=== PATIENT | male | born 2000 | race Caucasian/White ===

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

== ENCOUNTER 2025-01-09 01:54 | Inpatient (IN) | payer MEDICAID, OTHER ==
--- NOTE | 2025-01-09 02:25 | ED ---
Psych HPI - General Source: patient, police, RN notes reviewed Mode of arrival: ambulatory <Kamila Mckeon - Last Filed: 01/09/25 02:49> <Zaid Leonard - Last Filed: 01/09/25 03:50> - General Chief Complaint: Psychiatric Symptoms Stated Complaint: [place] Time Seen by Provider: 01/09/25 02:17 - History of Present Illness Initial Comments: 24-year-old male petitioned by police for mental health evaluation. Patient was found by his girlfriend with a belt around his neck that he attached to the refrigerator handle. Girlfriend then proceeded to call 911. Patient states he is not suicidal and is regretful of his actions. States he just has anxiety and believes he needs to be on a medication for his anxiety. States he has some redness around his neck however has no abrasions or lacerations, no difficulty breathing or swallowing. No other injuries. (Kamila Mckeon) - Related Data Home Medications Medication Instructions Recorded Confirmed No Known Home Medications 01/23/18 01/23/18 Allergies Allergy/AdvReac Type Severity Reaction Status Date / Time egg Allergy Nausea & Verified 01/09/25 02:00 Vomiting & Diarrhea Review of Systems ROS Other: All systems not noted in ROS Statement are negative. <Kamila Mckeon - Last Filed: 01/09/25 02:49> ROS Other: All systems not noted in ROS Statement are negative. <Zaid Leonard - Last Filed: 01/09/25 03:50> ROS Statement: Those systems with pertinent positive or pertinent negative responses have been documented in the HPI. Past Medical History Past Medical History: No Reported History History of Any Multi-Drug Resistant Organisms: None Reported Past Surgical History: No Surgical Hx Reported Past Psychological History: Depression Smoking Status: Current every day smoker, Vaper Past Alcohol Use History: None Reported Past Drug Use History: None Reported <Kamila Mckeon - Last Filed: 01/09/25 02:49> General Exam Limitations: no limitations General appearance: alert, in no apparent distress, anxious Head exam: Present: atraumatic, normocephalic, normal inspection Eye exam: Present: normal appearance, PERRL, EOMI. Absent: scleral icterus, conjunctival injection, periorbital swelling ENT exam: Present: normal exam, mucous membranes moist Neck exam: Absent: normal inspection (Mild erythema around the neck, no abrasions or lacerations), tenderness, meningismus, lymphadenopathy Respiratory exam: Present: normal lung sounds bilaterally. Absent: respiratory distress, wheezes, rales, rhonchi, stridor Cardiovascular Exam: Present: regular rate, normal rhythm, normal heart sounds. Absent: systolic murmur, diastolic murmur, rubs, gallop, clicks Neurological exam: Present: alert, oriented X3 Psychiatric exam: Present: normal affect, anxious, suicidal ideation. Absent: homicidal ideation Skin exam: Present: warm, dry, intact, normal color. Absent: rash <Kamila Mckeon - Last Filed: 01/09/25 02:49> Course Vital Signs 01/09/25 01:58 Temperature 98.7 F Pulse Rate 85 Respiratory 18 Rate Blood Pressure 148/94 O2 Sat by Pulse 96 Oximetry Medical Decision Making <Kamila Mckeon - Last Filed: 01/09/25 02:49> <Zaid Leonard - Last Filed: 01/09/25 03:50> - Medical Decision Making Was pt. sent in by a medical professional or institution (Dr. PA, [employer], urgent care, hospital, or correction...) When possible be specific @ -No Did you speak to anyone other than the patient for history (EMS, parent, family, police, friend...)? What history was obtained from this source @ -No Did you review nursing and triage notes (agree or disagree)? Why? @ -[I reviewed and agree with nursing and triage notes] Were old charts reviewed (outside hosp., previous admission, EMS record, old EKG, old radiological studies, urgent care reports/EKG's, correction records)? Report findings @ -No old charts were reviewed Differential Diagnosis (chest pain, altered mental status, abdominal pain women, abdominal pain men, vaginal bleeding, weakness, fever, dyspnea, syncope, headache, dizziness, GI bleed, back pain, seizure, CVA, palpatations, mental health, musculoskeletal)? @ -Differential Mental Health Depression, anxiety, bipolar, psychosis, schizophrenia, borderline personality, situational depression, adjustment disorder, behavioral disorder, brain tumor, malingering, substance abuse, encephalopathy, medication reaction, dementia, hypothyroidism, degenerative neurologic disorder, lupus.... This is not meant to be all-inclusive list EKG interpreted by me (3pts min.). @ -None X-rays interpreted by me (1pt min.). @ -None done CT interpreted by me (1pt min.). @ -None done U/S interpreted by me (1pt. min.). @ -None done What testing was considered but not performed or refused? (CT, X-rays, U/S, labs)? Why? @ -None What meds were considered but not given or refused? Why? @ -None Did you discuss the management of the patient with other professionals (professionals i.e. , PA, [employer], lab, RT, psych nurse, social media community manager, inclusion teacher, teacher, combat systems officer, case packer and sealer)? Give summary @ -No Was smoking cessation discussed for >3mins.? @ -No Was critical care preformed (if so, how long)? @ -No Were there social determinants of health that impacted care today? How? (Homelessness, low income, unemployed, alcoholism, drug addiction, transportation, low edu. Level, literacy, decrease access to med. care, snf, rehab)? @ -[No] Was there de-escalation of care discussed even if they declined (Discuss DNR or withdrawal of care, Hospice)? DNR status @ -No What co-morbidities impacted this encounter? (DM, HTN, Smoking, COPD, CAD, Cancer, CVA, ARF, Chemo, Hep., AIDS, mental health diagnosis, sleep apnea, morbid obesity)? @ -None Was patient admitted / discharged? Hospital course, mention meds given and route, prescriptions, significant lab abnormalities, going to OR and other pertinent info. @ -24-year-old male petitioned by police department for mental health evaluation after being found by his girlfriend with a belt tied around his neck. There is some mild erythema around the neck however no lacerations or difficulty breathing/swallowing. No other injuries. Patient is medically cleared at this time to be seen by EPS. (Kamila Mckeon) Patient had been medically cleared and evaluated by EPS, felt to require inpati ent psychiatric care. I do agree with this assessment. I completed a clinical certification on this patient. (Zaid Leonard) - Lab Data Lab Results 01/09/25 Range/Units 02:11 Influenza Type A (PCR) Not Detected (Not Detectd) Influenza Type B (PCR) Not Detected (Not Detectd) RSV (PCR) Not Detected (Not Detectd) SARS-CoV-2 (PCR) Not Detected (Not Detectd) Disposition <Kamila Mckeon - Last Filed: 01/09/25 02:49> Is patient prescribed a controlled substance at d/c from ED?: No Time of Disposition: 03:50 <Zaid Leonard - Last Filed: 01/09/25 03:50> Clinical Impression: Suicidal ideation, Attempted suicide, Depression Disposition: ADMITTED IP TO THIS HOSP Condition: Stable
[2025-01-09 02:52] LABS: Influenza A Not Detected (Not Detectd); Influenza B Not Detected (Not Detectd); RSV Not Detected (Not Detectd)
[2025-01-09] MEDS ORDERED: LORazepam 2 MG/ML INJ IM PRN (03:24)
[2025-01-09] MEDS ORDERED: IBUPROFEN 600 MG TAB PO PRN (03:24)
[2025-01-09] MEDS ORDERED: HALOPERIDOL LACTATE 5 MG/ML 1 ML VIAL IM PRN (03:24)
[2025-01-09] MEDS ORDERED: LORazepam 1 MG TAB PO PRN (03:24)
[2025-01-09] MEDS ORDERED: MAGNESIUM HYDROXIDE 2,400 MG/30 ML CUP PO PRN (03:24)
[2025-01-09] MEDS ORDERED: MAG HYDROX/AL HYDROX/SIMETH 355 ML BOTTLE PO PRN (03:24)
[2025-01-09] MEDS ORDERED: ACETAMINOPHEN TAB 325 MG TAB PO PRN (03:24)
[2025-01-09] MEDS ORDERED: haloperidoL 5 MG TAB PO PRN (03:24)
[2025-01-09] MEDS: NICOTINE 14MG/24HR PATCH TRANSDERM SCH (04:50)
[2025-01-09] MEDS ORDERED: hydrOXYzine HCL 25 MG TAB PO PRN (10:01)
[2025-01-09] MEDS: ESCITALOPRAM 5 MG TAB PO STA (10:41)
[2025-01-09] MEDS: NICOTINE GUM (POLACRILEX) 2 MG GUM BUCCAL PRN (11:34)
--- NOTE | 2025-01-09 11:58 | P.HP ---
Psychiatric H&P - . History & Physical: IDENTIFYING DATA: Patient is a 24 year old single male, employed, resides with yomi vasquez. HPI: Hosea Hoover is a 24 year old man with no prior psychiatric history who presented to the ER via emergency services after being found by his girlfriend with a belt around his neck. He was subsequently petitioned and evaluated in the ER. When asked about the events that precipitated admission, patient shared he and his girlfriend were having an intense phone conversation after the patient found photos and contact between his girlfriend and other guys on her phone. He describes having abruptly ended the conversation after which time he "wanted to feel pain" and took a belt and wrapped it around his neck and attested to the door of the refrigerator. His girlfriend unexpectedly came over to his home and found him there, where he estimates he had been approximately 8 minutes, and she called 911. The patient describes having had periods of time during which he has felt extreme internal emotional distress that has in the past resulted in non-suicidal self-injury. He last engaged in this behavior at age 18 when he choked himself with his hands in order to "feel pain." He denies having had intent to end his life during yesterday's incident (or the one at age 18) but feels the pain is an outlet for his distress. Aside from the 2 choking incidents he denies cutting himself or engaging in other non- suicidal self injury. He explained that the relationship with his girlfriend is new (3.5 weeks) but very important to him. Regarding other symptoms, he describes living with a "high" level of anxiety for as long as he can remember he describes anxiety as feeling "stressed out" and is often associated with physical symptoms including stomach upset, heart racing, and headache. He notices that when things happen he tends to think of "worst- case scenarios" and often finds himself feeling overwhelmed. This has at times resulted in distress that was visible to others. Once a coworker offered him one of their antianxiety pills because he was so distressed. He reports a history of 1 prior panic attack about 2-1/2 years ago that resulted in an ER visit. He denies experiencing persistent sadness or depression. He reports that he does sometimes feel hopeless or worthless but these feelings are fleeting and do not last more than a day. He denies difficulty with poor sleep or appetite. No issues with concentration impairment. He tends to be a very high energy person and feels that this is the baseline for him. He enjoys BMX riding and other outdoor activities, no issues with anhedonia. He does sometimes find himself feeling excessively guilty or blaming himself for things even when he is not at fault. He denies any history of trauma. He denies any history of a prolonged decreased need for sleep associated with an increase in goal-directed activity. He denies having experienced auditory or visual hallucinations in the past. He denies suicidal ideation, identified method, intent, or plan at present. He also denies homicidal ideation, intent, or plan. PAST PSYCHIATRIC HISTORY: Patient does not have any known psychiatric diagnoses. He has never been in outpatient psychiatric treatment, including therapy or medication management. He denies any prior inpatient psychiatric admissions. He has never been prescribed medication for psychiatric reasons. He denies any history of suicide attempts. He has engaged in nonsuicidal self injury in the past, choking himself at age 18. PMH: He denies having any chronic medical problems ALLERGIES: Drug allergy; he is allergic to egg CHEMICAL DEPENDENCY HISTORY: He denies any use of illicit drugs. He denies any use of marijuana. He does vape nicotine on a daily basis multiple times per day. He denies any use of alcohol. FAMILY PSYCHIATRIC/SUBSTANCE USE HISTORY: He denies any known family history of psychiatric diagnoses or substance use problems. No known family history of suicide. SOCIAL HISTORY: Patient was born and raised in [place], [place]. He was raised by both of his parents, though they are now . He lived in [place] most of his life until he moved with his family to [place] for about 8 years. Presently lives with his dad whom he helps provide care for. He is in a relationship for the last 3-1/2 weeks. He completed school through the 12th grade. His dad is a firearm doctorate of chiropractic, but the guns are in a safe that the patient does not have access to. 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 Allergies Allergy/AdvReac Type Severity Reaction Status Date / Time egg Allergy Nausea & Verified 01/09/25 02:00 Vomiting & Diarrhea Vital Signs Temp 98.4 F 01/09/25 04:37 Pulse 86 01/09/25 04:37 Resp 18 01/09/25 04:37 BP 138/68 01/09/25 04:37 Pulse Ox 97 01/09/25 04:37 FiO2 Intake & Output 01/08/25 01/09/25 01/09/25 18:59 06:59 18:59 Weight 82.554 kg Laboratory Last Values Influenza Type A (PCR) Not Detected (Not Detectd) 01/09/25 02:11 Influenza Type B (PCR) Not Detected (Not Detectd) 01/09/25 02:11 RSV (PCR) Not Detected (Not Detectd) 01/09/25 02:11 SARS-CoV-2 (PCR) Not Detected (Not Detectd) 01/09/25 02:11 MENTAL STATUS EXAM: General Appearance: Patient appears to be stated age is alert, directable, and attempts to cooperate. Patient appears to have appropriate hygiene and grooming. Good eye contact. Behavior: Patient is seated without any agitated behavior. Speech: Patient's speech is fluent and nonpressured. Mood/Affect: Patient reports their mood is "anxious", affect is congruent and constricted. Suicidality/Homicidality: Patient denies having any homicidal ideation intent or plan. Denies any suicidal ideations intent or plan Perceptions: Patient denies any visual hallucinations and denies any auditory hallucinations Though content/process: There is no evidence of any delusional thought content and thought process is linear and goal-directed. Memory and concentration: AOX3, grossly intact for the purposes of this session. Can recall recent and remote events accurately. No impairment in attention or concentration observed. Judgment and insight: Questionable STRENGTHS/WEAKNESSES: strength is that patient is resilient. Weakness is that patient has poor judgment and is impulsive INTELLECT: Average IMPRESSIONS: Hosea Hoover is a 24-year-old man with no prior psychiatric history who presented to the ER after he was found with a belt around his neck following a difficult conversation with his girlfriend. During today's evaluation he shared that he has a significant amount of anxiety that he lives with on a daily basis and was feeling particularly anxious about the status of his new relationship when he engaged in the act of self-harm. He denies any intent of dying or ending his life he stated that he engaged in this behavior in order to "feel pain". He reports having had prior experiences of nonsuicidal self injury secondary to intense internal distress. Regarding his symptom history, he seems to meet criteria for generalized anxiety disorder as evidenced by pervasive and unmanageable anxiety and worry that is associated with physical symptoms including GI distress, headache, and heart racing. Additionally he finds it hard to manage his anxiety and is eager to seek solutions. We discussed that the best evidence for anxiety management tends to be a approach that includes medication and therapy. He is open to engaging in therapy on outpatient basis. We discussed at length the first-line agents for anxiety specifically SSRIs, and shared information about common side effects. He is open to starting a medication to help address his symptoms. - Generalized Anxiety Disorder - Nicotine dependence PLAN: -Patient is admitted under voluntary status to [facility] for stabilization of psychiatric symptoms and safety. Patient has signed adult voluntary form and medication consent and is placed in patient's chart. -Medications : - Start Lexapro 5 mg daily today; will increase to 10 mg daily tomorrow - Will make hydroxyzine 25 mg TID PRN anxiety available to help with symptom management. -Ativan and Haldol PRN for agitation/aggression -Patient was informed of the risks, benefits and side effects of the medication and patient verbally consented to taking the medications. Patient signed med consent form and was placed in chart. -Internal Medicine consult to perform medical evaluation and physical. -NRT -nicotine patch; will also supplement with nicotine gum given significant daily nicotine use -SW on board for discharge planning. Encourage patient to participate in groups to work on coping skills. May benefit from DBT as an outpatient.
[2025-01-09 22:57] LABS: Appearance,Urine Cloudy (Clear); Bacteria,Urine Rare /hpf; Bilirubin,Urine Negative (Negative); Blood,Urine Negative (Negative); Color,Urine Yellow; Glucose,Urine (UA) Negative (Negative); Ketones,Urine Negative (Negative); Leukocyte Esterase,Urine Negative (Negative); Mucus,Urine Rare /hpf; Nitrite,Urine Negative (Negative); PH, Urine 7.5 (5.0-8.0); Protein,Urine 1+ (Negative); RBC,Urine 1 /hpf (0-5); Specific Gravity,Urine 1.022 (1.001-1.035); Squamous Epithelial Cell,Urine <1 /hpf (0-4); Urobilinogen,Urine <2.0 mg/dL (<2.0); WBC,Urine 2 /hpf (0-5)
[2025-01-10 09:21] LABS: Basophils # (A) 0.1 k/uL (0-0.2); Basophils % (A) 1 %; Eosinophils # (A) 0.3 k/uL (0-0.7); Eosinophils % (A) 4 %; HCT 48.5 % (39.0-53.0); HGB 15.6 gm/dL (13.0-17.5); Lymphocytes # (A) 1.5 k/uL (1.0-4.8); Lymphocytes % (A) 18 %; MCH 28.2 pg (25.0-35.0); MCHC 32.1 g/dL (31.0-37.0); MCV 87.8 fL (80.0-100.0); Mean Platelet Volume 7.4; Monocytes # (A) 0.7 k/uL (0-1.0); Monocytes % (A) 8 %; Neutrophils # (A) 5.7 k/uL (1.3-7.7); Neutrophils % (A) 67 %; Platelet Count 276 k/uL (150-450); RBC 5.53 m/uL (4.30-5.90); RDW 12.7 % (11.5-15.5); WBC 8.5 k/uL (3.8-10.6)
[2025-01-10 09:27] LABS: Urine Alcohol Negative (Negative); Urine Barbiturate Negative (Negative); Urine Cocaine Negative (Negative); Urine Methadone Negative (Negative); Urine Opiates Negative (Negative); Urine Phencyclidine Negative (Negative)
[2025-01-10 09:36] LABS: ALT 18 U/L (4-49); AST 29 U/L (17-59); African American GFR (CKD) >90 (>60 ml/min/1.73 sqM); Albumin 4.8 g/dL (3.5-5.0); Alkaline Phosphatase 54 U/L (38-126); Anion Gap 7 mmol/L; Blood Urea Nitrogen 9 mg/dL (9-20); Calcium 9.8 mg/dL (8.4-10.2); Carbon Dioxide 30 mmol/L (22-30); Chloride 101 mmol/L (98-107); Glucose 107 mg/dL (74-99); Non-African American GFR(CKD) >90 (>60 ml/min/1.73 sqM); Sodium 138 mmol/L (137-145); Total Bilirubin 1.1 mg/dL (0.2-1.3); Total Protein 7.6 g/dL (6.3-8.2)
--- NOTE | 2025-01-10 11:50 | P.PN ---
Progress Note - Text Progress Note Date: 01/10/25 Interval History: Patient was seen today participating in activities group and was agreeable to speak in the office. Patient states that he has been doing a bit better since yesterday, claims that her he feels that he would prefer to remain on the 5 mg dose of the Lexapro. States that he is not having any side effects however believes that "I can still feel the medication in me from yesterday". He claims that he regrets attempting to harm himself states that it was an impulsive decision believes that he would not do that anymore. Claims that his mood and anxiety been mildly improving since yesterday. Claims that he has been participating, talking with others on the unit, eating well. Claims that he slept fairly last night. At this time he is denying any suicidal homicidal ideations intent or plan denying any auditory or visual hallucinations. MENTAL STATUS EXAM: General Appearance: Patient appears to be stated age is alert, directable, and attempts to cooperate. Patient appears to have appropriate hygiene and grooming. Good eye contact. Behavior: Patient is seated without any agitated behavior. Speech: Patient's speech is fluent and nonpressured. Mood/Affect: Patient reports their mood is "a bit better", affect is congruent and constricted. Improving mildly Suicidality/Homicidality: Patient denies having any homicidal ideation intent or plan. Denies any suicidal ideations intent or plan Perceptions: Patient denies any visual hallucinations and denies any auditory hallucinations Though content/process: There is no evidence of any delusional thought content and thought process is linear and goal-directed. Memory and concentration: AOX3, grossly intact for the purposes of this session. Judgment and insight: Poor, improving mildly IMPRESSIONS: Generalized Anxiety Disorder Nicotine dependence PLAN: -Patient is admitted under voluntary status to [facility] for stabilization of psychiatric symptoms and safety. Patient has signed adult voluntary form and medication consent and is placed in patient's chart. -Medications : Lexapro 5 mg daily for mood/anxiety, patient wants to remain on this dose for now. hydroxyzine 25 mg TID PRN anxiety available to help with symptom management. -Ativan and Haldol PRN for agitation/aggression -NRT -nicotine patch; will also supplement with nicotine gum given significant daily nicotine use -SW on board for discharge planning. Encourage patient to participate in groups to work on coping skills. Possible discharge Friday if patient is improving, will be going back home.
[2025-01-10] MEDS: ESCITALOPRAM 5 MG TAB PO SCH (12:11)
[2025-01-10] MEDS: ESCITALOPRAM 10 MG TAB PO SCH (12:20)
[2025-01-11] MEDS: NICOTINE 14MG/24HR PATCH TRANSDERM SCH (11:41)
--- NOTE | 2025-01-11 15:23 | P.PN ---
Progress Note - Text Progress Note Date: 01/11/25 Interval History: Patient was seen today participating in activities group and was agreeable to speak in the office. Patient claims that he is doing better. Claims that his mood and anxiety have been improving. Claims that he feels the Lexapro has been helping significantly, wants to stay at this dose at this time. We spoke about the possibility of him getting used to that dose and needing a bit higher of a dose and to watch out for worsening depression or anxiety in the next few weeks, he was okay with this. States that he is getting a lot of being here on the unit, making friends and interacting with others. Claims that he feels more future oriented, potential discharge tomorrow. States that he is sleeping fairly well does not need any help with this, eating well. At this time he is denying any suicidal homicidal ideations intent or plan denying any auditory or visual hallucinations. MENTAL STATUS EXAM: General Appearance: Patient appears to be stated age is alert, directable, and attempts to cooperate. Patient appears to have appropriate hygiene and grooming. Good eye contact. Behavior: Patient is seated without any agitated behavior. Cooperative Speech: Patient's speech is fluent and nonpressured. Mood/Affect: Patient reports their mood is "good", affect is congruent and Improving mildly Suicidality/Homicidality: Patient denies having any homicidal ideation intent or plan. Denies any suicidal ideations intent or plan Perceptions: Patient denies any visual hallucinations and denies any auditory hallucinations Though content/process: There is no evidence of any delusional thought content and thought process is linear and goal-directed. More future oriented Memory and concentration: AOX3, grossly intact for the purposes of this session. Judgment and insight: improving mildly IMPRESSIONS: Generalized Anxiety Disorder Nicotine dependence PLAN: -Patient is admitted under voluntary status to [facility] for stabilization of psychiatric symptoms and safety. Patient has signed adult voluntary form and medication consent and is placed in patient's chart. -Medications : lexapro 5 mg daily for mood/anxiety, patient wants to remain on this dose for now. hydroxyzine 25 mg TID PRN anxiety available to help with symptom management. -Ativan and Haldol PRN for agitation/aggression -NRT -nicotine patch; will also supplement with nicotine gum given significant daily nicotine use -SW on board for discharge planning. Encourage patient to participate in groups to work on coping skills. Possible discharge tomorrow if patient is improving, will be going back home.
[2025-01-12 08:54] VITALS: BP 127/80; PULSE 60; RESP 16; TEMP 97.7
--- NOTE | 2025-01-12 10:03 | P.DS ---
Providers Date of admission: 01/09/25 03:05 Expected date of discharge: 01/12/25 Attending physician: Hank Padron MD Consults: 01/09/25 03:24 Consult Physician Routine Consulting Provider: Behzad Ma Consult Reason/Comments: H&P Do you want consulting provider notified?: Yes Primary care physician: Stated None - Discharge Diagnosis(es) (1) Depressive disorder Current Visit: Yes Status: Acute Priority: High (2) Generalized anxiety disorder Current Visit: Yes Status: Acute Priority: High (3) Nicotine dependence Current Visit: Yes Status: Acute Priority: Low Hospital Course: Admission HPI: Admission note was completed by Dr Alfred "Patient is a 24 year old single male, employed, resides with family. Hosea Hoover is a 24 year old man with no prior psychiatric history who presented to the ER via emergency services after being found by his girlfriend with a belt around his neck. He was subsequently petitioned and evaluated in the ER. When asked about the events that precipitated admission, patient shared he and his girlfriend were having an intense phone conversation after the patient found photos and contact between his girlfriend and other guys on her phone. He describes having abruptly ended the conversation after which time he "wanted to feel pain" and took a belt and wrapped it around his neck and attested to the door of the refrigerator. His girlfriend unexpectedly came over to his home and found him there, where he estimates he had been approximately 8 minutes, and she called 911. The patient describes having had periods of time during which he has felt extreme internal emotional distress that has in the past resulted in non-suicidal self-injury. He last engaged in this behavior at age 18 when he choked himself with his hands in order to "feel pain." He denies having had intent to end his life during yesterday's incident (or the one at age 18) but feels the pain is an outlet for his distress. Aside from the 2 choking incidents he denies cutting himself or engaging in other non- suicidal self injury. He explained that the relationship with his girlfriend is new (3.5 weeks) but very important to him. Regarding other symptoms, he describes living with a "high" level of anxiety for as long as he can remember he describes anxiety as feeling "stressed out" and is often associated with physical symptoms including stomach upset, heart racing, and headache. He notices that when things happen he tends to think of "worst-case s cenarios" and often finds himself feeling overwhelmed. This has at times resulted in distress that was visible to others. Once a coworker offered him one of their antianxiety pills because he was so distressed. He reports a history of 1 prior panic attack about 2-1/2 years ago that resulted in an ER visit. He denies experiencing persistent sadness or depression. He reports that he does sometimes feel hopeless or worthless but these feelings are fleeting and do not last more than a day. He denies difficulty with poor sleep or appetite. No issues with concentration impairment. He tends to be a very high energy person and feels that this is the baseline for him. He enjoys BMX riding and other outdoor activities, no issues with anhedonia. He does sometimes find himself feeling excessively guilty or blaming himself for things even when he is not at fault. He denies any history of trauma. He denies any history of a prolonged decreased need for sleep associated with an increase in goal-directed activity. He denies having experienced auditory or visual hallucinations in the past. He denies suicidal ideation, identified method, intent, or plan at present. He also denies homicidal ideation, intent, or plan." Hospital course: Upon admission to the unit patient was directable and agreeable to commence treatment and signed adult voluntary form. Patient was initially depressed anxious however with time and treatment patient got along well with other patients on the unit and followed unit protocol. Patient was compliant with the medications and denied any side effects throughout hospital course. Patient was started on Lexapro 5 mg daily for mood/anxiety, patient was very hesitant and did not want to increase to 10 mg daily therefore he was kept at 5 mg a day.. Patient spoke of his stressors and engaged in therapy both group/activity therapy. Patient was also seen by medical team for history and physical exam. Throughout the course of the hospitalization patient gradually improved with regards to mood, anxiety, sleep and became more future oriented with improved insight and judgment. On the day of discharge patient denied any suicidal or homicidal ideations intent or plan denied any auditory or visual hallucinations. Patient endorsed wanting to live for their health and family. The patient denied any access to guns or weapons. Patient denied any paranoia and did not endorse any delusions. Patient does not have a significant history of substance abuse and was counseled on abstaining from all substances including alcohol and marijuana. Patient was also counseled on the medications and need for regular compliance and was encouraged to follow-up with their outpatient appointment for mental health and also for primary care. Prior to discharge a family meeting will be arranged by manager social media to answer any questions and ensure safety upon discharge incuding making sure that guns/weapons are either removed from the home or locked away. Mental status exam: General Appearance: Patient appears to be thin, stated age is alert, pleasant, and cooperative. Patient is in no acute distress and has improved hygiene and grooming Behavior: Patient is calmly seated without any agitated behavior. Speech: Patient's speech is fluent and nonpressured. Mood/Affect: Patient reports their mood is "good", affect is congruent and euthymic. Suicidality/Homicidality: Patient denies having any suicidal or homicidal ideation intent or plan. Perceptions: Patient denies any auditory or visual hallucinations. Though content/process: There is no evidence of any delusional thought content and thought process is linear and goal-directed. More future oriented Memory and concentration: AOX3, grossly intact for the purposes of this session. Can spell "WORLD" backwards correctly. Judgment and insight: improved with guarded prognosis Impression: Depressive disorder unspecified generalized anxiety disorder Nicotine dependence Plan: -Continue with discharge today as patient has improved and stabilized psychiatrically and is not currently an imminent threat to themself and/or others. -Continue medications: Lexapro 5 mg daily for mood/anxiety. Spoke with patient about possibly having this increased to 10 mg in the near future if his symptoms do worsen, he will be speaking with his outpatient provider about this. -Patient was counseled on the need for medication compliance and appropriate follow-up at mental health and also primary care for medical issues. Patient verbalized understanding and agreed. -Social work to arrange for and conduct family meeting to ensure safety upon discharge and answer any questions/concerns. also to ensure safe home environment that guns/weapons are either removed from the home or locked away. Social work also to arrange for patients follow up appointments for psychiatric care along with follow up with primary care provider. -Patient counseled on abstaining from recreational drugs and marijuana and alcohol. Was informed/educated on the adverse effects on their physical and mental health. Patient verbally agreed and understood. -Patient was instructed to return to the hospital or seek immediate medical care if their psychiatric or medical symptoms do worsen or reoccur. Allergies Allergy/AdvReac Type Severity Reaction Status Date / Time egg Allergy Nausea & Verified 01/09/25 02:00 Vomiting & Diarrhea Laboratory Results WBC 8.5 k/uL (3.8-10.6) 01/10/25 08:54 RBC 5.53 m/uL (4.30-5.90) 01/10/25 08:54 Hgb 15.6 gm/dL (13.0-17.5) 01/10/25 08:54 Hct 48.5 % (39.0-53.0) 01/10/25 08:54 MCV 87.8 fL (80.0-100.0) 01/10/25 08:54 MCH 28.2 pg (25.0-35.0) 01/10/25 08:54 MCHC 32.1 g/dL (31.0-37.0) 01/10/25 08:54 RDW 12.7 % (11.5-15.5) 01/10/25 08:54 Plt Count 276 k/uL (150-450) 01/10/25 08:54 MPV 7.4 01/10/25 08:54 Neutrophils % 67 % 01/10/25 08:54 Lymphocytes % 18 % 01/10/25 08:54 Monocytes % 8 % 01/10/25 08:54 Eosinophils % 4 % 01/10/25 08:54 Basophils % 1 % 01/10/25 08:54 Neutrophils # 5.7 k/uL (1.3-7.7) 01/10/25 08:54 Lymphocytes # 1.5 k/uL (1.0-4.8) 01/10/25 08:54 Monocytes # 0.7 k/uL (0-1.0) 01/10/25 08:54 Eosinophils # 0.3 k/uL (0-0.7) 01/10/25 08:54 Basophils # 0.1 k/uL (0-0.2) 01/10/25 08:54 Sodium 138 mmol/L (137-145) 01/10/25 08:54 Potassium 4.0 mmol/L (3.5-5.1) 01/10/25 08:54 Chloride 101 mmol/L (98-107) 01/10/25 08:54 Carbon Dioxide 30 mmol/L (22-30) 01/10/25 08:54 Anion Gap 7 mmol/L 01/10/25 08:54 BUN 9 mg/dL (9-20) 01/10/25 08:54 Creatinine 0.96 mg/dL (0.66-1.25) 01/10/25 08:54 Est GFR (CKD-EPI)AfAm >90 (>60 ml/min/1.73 sqM) 01/10/25 08:54 Est GFR (CKD-EPI)NonAf >90 (>60 ml/min/1.73 sqM) 01/10/25 08:54 Glucose 107 mg/dL (74-99) H 01/10/25 08:[address] Glu mg/dL 111 mg/dL 01/10/25 08:54 Hemoglobin A1c 5.5 % (<=6.0) 01/10/25 08:54 Calcium 9.8 mg/dL (8.4-10.2) 01/10/25 08:54 Total Bilirubin 1.1 mg/dL (0.2-1.3) 01/10/25 08:54 AST 29 U/L (17-59) 01/10/25 08:54 ALT 18 U/L (4-49) 01/10/25 08:54 Alkaline Phosphatase 54 U/L (38-126) 01/10/25 08:54 Total Protein 7.6 g/dL (6.3-8.2) 01/10/25 08:54 Albumin 4.8 g/dL (3.5-5.0) 01/10/25 08:54 TSH 0.760 mIU/L (0.465-4.680) 01/10/25 08:54 Urine Color Yellow 01/09/25 22:35 Urine Appearance Cloudy (Clear) 01/09/25 22:35 Urine pH 7.5 (5.0-8.0) 01/09/25 22:35 Ur Specific [place] 1.022 (1.001-1.035) 01/09/25 22:35 Urine Protein 1+ (Negative) H 01/09/25 22:35 Urine Glucose (UA) Negative (Negative) 01/09/25 22:35 Urine Ketones Negative (Negative) 01/09/25 22:35 Urine Blood Negative (Negative) 01/09/25 22:35 Urine Nitrite Negative (Negative) 01/09/25 22:35 Urine Bilirubin Negative (Negative) 01/09/25 22:35 Urine Urobilinogen <2.0 mg/dL (<2.0) 01/09/25 22:35 Ur Leukocyte Esterase Negative (Negative) 01/09/25 22:35 Urine RBC 1 /hpf (0-5) 01/09/25 22:35 Urine WBC 2 /hpf (0-5) 01/09/25 22:35 Ur Squamous Epith Cells <1 /hpf (0-4) 01/09/25 22:35 Urine Bacteria Rare /hpf (None) H 01/09/25 22:35 Urine Mucus Rare /hpf (None) H 01/09/25 22:35 Urine Opiates Screen Negative (Negative) 01/09/25 22:35 Urine Methadone Screen Negative (Negative) 01/09/25 22:35 Ur Propoxyphene Screen Negative (Negative) 01/09/25 22:35 Urine Barbiturates Negative (Negative) 01/09/25 22:35 Ur Phencyclidine Scrn Negative (Negative) 01/09/25 22:35 Ur Amphetamine Screen Negative (Negative) 01/09/25 22:35 U Benzodiazepines Scrn Negative (Negative) 01/09/25 22:35 Urine Cocaine Screen Negative (Negative) 01/09/25 22:35 U Cannabinoids Screen Negative (Negative) 01/09/25 22:35 Urine Alcohol Negative (Negative) 01/09/25 22:35 U Creatinine Drug Scrn 263.0 mg/dL (>=20.0) 01/09/25 22:35 Influenza Type A (PCR) Not Detected (Not Detectd) 01/09/25 02:11 Influenza Type B (PCR) Not Detected (Not Detectd) 01/09/25 02:11 RSV (PCR) Not Detected (Not Detectd) 01/09/25 02:11 SARS-CoV-2 (PCR) Not Detected (Not Detectd) 01/09/25 02:11 Vital Signs Temp 97.7 F 01/12/25 08:53 Pulse 60 01/12/25 08:53 Resp 16 01/12/25 08:53 BP 127/80 01/12/25 08:53 Pulse Ox 100 01/12/25 08:53 FiO2 Patient Condition at Discharge: Stable Plan - Discharge Summary Discharge Rx Participant: Yes New Discharge Prescriptions: New Nicotine 14Mg/24Hr Patch [Habitrol] 1 patch TRANSDERM DAILY 14 Days #14 patch Escitalopram [Lexapro] 5 mg PO DAILY 30 Days #30 tab Nicotine Gum (Polacrilex) [Nicorette] 2 mg BUCCAL Q4HR PRN pieceofgum PRN Reason: Nicotine Cravings Discharge Medication List Escitalopram [Lexapro] 5 mg PO DAILY 30 Days #30 tab 01/12/25 [Rx] Nicotine 14Mg/24Hr Patch [Habitrol] 1 patch TRANSDERM DAILY 14 Days #14 patch 01/12/25 [Rx] Nicotine Gum (Polacrilex) [Nicorette] 2 mg BUCCAL Q4HR PRN pieceofgum 01/12/25 [Rx] Follow up Appointment(s)/Referral(s): [facility] [REFERRING] - 1 Week Patient Instructions/Handouts: How to Stop Smoking (DC), Generalized Anxiety Disorder (ED) Activity/Diet/Wound Care/Special Instructions: [facility] Discharge Info Avoid the use of street drugs and alcohol. Take all medications as prescribed. When you are in need of refills on your medications, please contact your outpatient medical provider and/or outpatient psychiatrist. Please go to your scheduled outpatient appointments for aftercare treatment. If symptoms return or become worse, call the crisis line at or and/or visit the nearest emergency room for assistance. National Suicide and Crisis Lifeline - call or text 604. Discharge Disposition: HOME SELF-CARE
== END 2025-01-12 16:35 | disposition home or self-care (01) | DRG 751 ==
LOC: EC 01:54 → 3MHU 03:05
PROVIDERS: ADMIT Psychiatry & Neurology Psychiatry; ATTEND Psychiatry & Neurology Psychiatry
DX: F32.A Depression, unspecified (principal); F17.290 Nicotine dependence, other tobacco product, uncomplicated; F41.1 Generalized anxiety disorder; R45.1 Restlessness and agitation; R45.851 Suicidal ideations; Z11.52 Encounter for screening for COVID-19; Z91.52 Personal history of nonsuicidal self-harm
CPT/HCPCS: 80053; 80306; 81001; 82075; 83036; 84443; 85025; 87636; 99285